=== PATIENT | female | born 1940 | race African-American/Black ===

== ENCOUNTER 2017-03-04 15:15 | Emergency (ER) | payer MEDICARE, OTHER ==
[~2017-03-04] VITALS: Ht 160 cm; Wt 80.0 kg
[~2017-03-04 15:15] MED LIST: DIAZ2 PO; ENAL5TAB38 PO; FLUT1SPR9 EACH NARE; MOME17I EACH NARE; MONT10TA2 PO; PLAV75TA PO; PROT40TA PO
[2017-03-04 15:18] VITALS: BP 139/70; PULSE 68; RESP 20; TEMP 98.9; O2SAT 97
--- NOTE | 2017-03-04 15:27 | PD ---
Physical Exam Date Seen by Provider: Mar 04, 2017 Time Seen by Provider: 15:23 Narrative 76 yo here for right sided back pain since long car ride yesterday. No injury. Pain is 8/10 especially with changes in position. Ambulating but with cane which is chronic. Vitals are stable in triage. Awaiting Bed placement. Data Data Last Documented VS Vital Signs Date Time Temp Pulse Resp B/P Pulse Ox O2 Delivery O2 Flow Rate FiO2 03/04/17 15:18 98.9 68 20 139/70 97 Room Air [facility] Medical Record Reviewed: Yes Supervised Visit with MELVINA: Chilo Coy Mar 04, 2017 15:27
[2017-03-04] MEDS ORDERED: SODIUM CHLORIDE 0.9% FLUSH 10 ML FLUSH IVF PRN (17:00)
[2017-03-04] MEDS ORDERED: HYDROmorphone HCL PF 1 MG/ML VIAL IVS ONE (17:00)
[2017-03-04] MEDS ORDERED: ONDANSETRON HCL 4 MG/2 ML VIAL IVP ONE (17:00)
--- NOTE | 2017-03-04 17:09 | PD ---
Physical Exam Date Seen by Provider: Mar 04, 2017 Narrative GENERAL: SKIN: Warm and dry. HEAD: Atraumatic. Normocephalic. EYES: Pupils equal and round. No scleral icterus. No injection or drainage. ENT: No nasal bleeding or discharge. Mucous membranes pink and moist. NECK: Trachea midline. No JVD. CARDIOVASCULAR: Regular rate and rhythm. RESPIRATORY: No accessory muscle use. Clear to auscultation. Breath sounds equal bilaterally. GASTROINTESTINAL: Abdomen soft, non-tender, nondistended. Hepatic and splenic margins not palpable. RT CVA TTP MUSCULOSKELETAL: Extremities without clubbing, cyanosis, or edema. No obvious deformities. NEUROLOGICAL: Awake and alert. No obvious cranial nerve deficits. Motor grossly within normal limits. Five out of 5 muscle strength in the arms and legs. Normal speech. PSYCHIATRIC: Appropriate mood and affect; insight and judgment normal. c/o rt flank pain, assoc with urgency/frequency/dysuria, ongoing for 2 days and not improving, 03/05 Data Data Last Documented VS Vital Signs Date Time Temp Pulse Resp B/P Pulse Ox O2 Delivery O2 Flow Rate FiO2 03/04/17 18:37 17 03/04/17 18:34 55 161/72 97 03/04/17 17:33 Room Air 03/04/17 15:18 98.9 Orders Complete Blood Count With Diff (03/04/17 16:59) Basic Metabolic Panel (Bmp) (03/04/17 16:59) Ct Abd/Pel W/O Iv Contrast (03/04/17 16:59) Iv Access Insert/Monitor (03/04/17 16:59) Ondansetron Inj (Zofran Inj) (03/04/17 17:00) Sodium Chloride 0.9% Flush (Ns Flush) (03/04/17 17:00) Hydromorphone Pf Inj (Dilaudid Pf Inj) (03/04/17 17:00) Urinalysis - C+S If Indicated (03/04/17 17:09) Tramadol (Ultram) (03/04/17 17:45) Labs Laboratory Tests Test 03/04/17 17:30 White Blood Count 6.2 TH/MM3 Red Blood Count 4.65 MIL/MM3 Hemoglobin 13.6 GM/DL Hematocrit 39.7 % Mean Corpuscular Volume 85.5 FL Mean Corpuscular Hemoglobin 29.3 PG Mean Corpuscular Hemoglobin 34.2 % Concent Red Cell Distribution Width 14.6 % Platelet Count 250 TH/MM3 Mean Platelet Volume 8.7 FL Neutrophils (%) (Auto) 60.6 % Lymphocytes (%) (Auto) 28.4 % Monocytes (%) (Auto) 9.0 % Eosinophils (%) (Auto) 1.2 % Basophils (%) (Auto) 0.8 % Neutrophils # (Auto) 3.8 TH/MM3 Lymphocytes # (Auto) 1.8 TH/MM3 Monocytes # (Auto) 0.6 TH/MM3 Eosinophils # (Auto) 0.1 TH/MM3 Basophils # (Auto) 0.0 TH/MM3 CBC Comment DIFF FINAL Differential Comment Urine Color YELLOW Urine Turbidity CLEAR Urine pH 5.0 Urine Specific [place] 1.019 Urine Protein NEG mg/dL Urine Glucose (UA) NEG mg/dL Urine Ketones NEG mg/dL Urine Occult Blood NEG Urine Nitrite NEG Urine Bilirubin NEG Urine Urobilinogen LESS THAN 2.0 MG/DL Urine Leukocyte Esterase TRACE Urine WBC 1 /hpf Urine Squamous Epithelial <1 /hpf Cells Microscopic Urinalysis Comment CULT NOT INDICATED Sodium Level 140 MEQ/L Potassium Level 3.4 MEQ/L Chloride Level 103 MEQ/L Carbon Dioxide Level 29.7 MEQ/L Anion Gap 7 MEQ/L Blood Urea Nitrogen 15 MG/DL Creatinine 1.18 MG/DL Estimat Glomerular Filtration 54 ML/MIN Rate Random Glucose 78 MG/DL Calcium Level 9.2 MG/DL [facility] Medical Record Reviewed: Yes Supervised Visit with MELVINA: No Narrative Course patient neg pyelo, neg kidney stones, ua neg uti, nl renal funciton, and now patient will be d/c with muscle relaxer Diagnosis Primary Impression: RIGHT FLANK PAIN Scripts Cyclobenzaprine (Flexeril)10 Mg Tab10 Mg PO TID #21 TAB Prov:Deep Mckeon MD 03/04/17 Codeine-Acetaminophen 30-300 mg Tab1 Tab PO Q4H PRN (PAIN) #20 TAB Prov:Deep Mckeon MD 03/04/17 Disposition: 01 DISCHARGE HOME Condition: Stable Deep Mckeon MD Mar 04, 2017 17:09
[2017-03-04 17:33] VITALS: BP 167/69; PULSE 62; RESP 16; O2SAT 99
[2017-03-04] MEDS ORDERED: PROT40TA PO (17:41)
[2017-03-04] MEDS ORDERED: PLAV75TA29 PO (17:41)
[2017-03-04] MEDS ORDERED: ENAL10TA PO (17:41)
[2017-03-04] MEDS ORDERED: traMADol HCL 50 MG TAB PO ONE (17:45)
[2017-03-04 17:53] LABS: AUTOMATED NEUTROPHIL # 3.8 TH/MM3 (1.8-7.7); BASOPHIL % 0.8 % (0.0-2.0); EOSINOPHIL # 0.1 TH/MM3 (0-0.4); EOSINOPHIL % 1.2 % (0.0-4.0); HEMATOCRIT 39.7 % (35.0-46.0); HEMO FLAGS DIFF FINAL; LYMPH % 28.4 % (9.0-44.0); LYMPHOCYTE # 1.8 TH/MM3 (1.0-4.8); MEAN CELL VOLUME 85.5 FL (80.0-100.0); MEAN CORPUSCULAR HEMOGLOBIN 29.3 PG (27.0-34.0); MEAN CORPUSCULAR HGB CONC 34.2 % (32.0-36.0); NEUT % 60.6 % (16.0-70.0); PLATELET COUNT 250 TH/MM3 (150-450); RED BLOOD COUNT 4.65 MIL/MM3 (4.00-5.30); RED CELL DISTRIBUTION WIDTH 14.6 % (11.6-17.2); WHITE BLOOD COUNT 6.2 TH/MM3 (4.0-11.0)
[2017-03-04 17:58] LABS: BLOOD, URINE NEG (NEG); COMMENT (UR) CULT NOT INDICATED; CULTURE IF INDICATED CULT NOT INDICATED; GLUCOSE,URINE NEG (NEG); KETONE, URINE NEG (NEG); NITRITE,URINE NEG (NEG); SQUAMOUS EPITHELIAL CELL URINE <1 /hpf (0-5); URINE COLOR YELLOW (YELLW/STRAW)
[2017-03-04 18:07] LABS: BICARBONATE 29.7 MEQ/L (21.0-32.0); POTASSIUM 3.4 MEQ/L (3.5-5.1)
[2017-03-04 18:34] VITALS: BP 161/72; PULSE 55; O2SAT 97
[2017-03-04 18:37] VITALS: RESP 17
--- NOTE | 2017-03-04 18:49 | RADRPT ---
EXAM DATE/TIME: 03/04/2017 18:08 [place] COMPARISON: No previous studies available for comparison. INDICATIONS : Right sided abdomen pain. ORAL CONTRAST: No oral contrast ingested. RADIATION DOSE: 21.87 CTDIvol (mGy) MEDICAL HISTORY : Cerebrovascular disease. Hypertension. SURGICAL HISTORY : Appendectomy. Hysterectomy. ENCOUNTER: Initial ACUITY: 1 day PAIN SCALE: 7/10 LOCATION: Right abdomen TECHNIQUE: Volumetric scanning of the abdomen and pelvis was performed. Using automated exposure control and ad justment of the mA and/or kV according to patient size, radiation dose was kept as low as reasonably achievable to obtain optimal diagnostic quality images. DICOM format image data is available electro nically for review and comparison. FINDINGS: Lung bases are clear. No acute findings in the liver, spleen, adrenals, kidneys or pancreas. No free fluid. No bowel obstruction. No adenopathy. No acute bony abnormalities. CONCLUSION: 1. No acute findings. Jamie Ching MD on March 04, 2017 at 18:40 Board Certified Radiologist. This report was verified electronically.
[2017-03-04] MEDS ORDERED: CODE30TA2 PO (21:03)
[2017-03-04] MEDS ORDERED: CYCL1TAB29 PO (21:03)
== END 2017-03-04 21:51 | disposition home or self-care (01) ==
LOC: NEPD 15:15
DX: R10.9 Unspecified abdominal pain (principal)
CPT/HCPCS: 74176; 80048; 81001; 85025; 96374; 99285; J2405; J1170